=== PATIENT | female | born 1965 | race African-American/Black ===

== ENCOUNTER 2024-11-24 17:08 | Emergency (ER) | payer OTHER ==
[2024-11-24] MEDS ORDERED: Acetaminophen 500 MG TAB ONE (17:21)
== END 2024-11-24 18:07 | disposition home or self-care (01) ==
LOC: BURERS 17:08
DX: J11.1 Influenza due to unidentified influenza virus with other respiratory manifestations (principal); H60.91 Unspecified otitis externa, right ear; I10 Essential (primary) hypertension
CPT/HCPCS: 87400; 99283